=== PATIENT | male | born 1945 | race Caucasian/White ===

== ENCOUNTER 2020-08-05 09:52 | Emergency (ER) | payer OTHER ==
[~2020-08-05 09:52] MED LIST: OMEP20CA12 PO
[2020-08-05 10:16] LABS: APPEARANCE,URINE Clear (CLEAR); BILIRUBIN,URINE Negative (NEGATIVE); COLOR,URINE Yellow (YELLOW); GLUCOSE, URINE (UA) Negative (NEGATIVE); KETONES,URINE Negative (NEGATIVE); LEUKOCYTE ESTERASE ,URINE Negative (NEGATIVE); NITRATE,URINE Negative (NEGATIVE); OCCULT BLOOD,URINE Negative (NEGATIVE); PH,URINE 5.5 (5.0-8.0); PROTEIN,URINE Negative (NEGATIVE)
[2020-08-05] MEDS ORDERED: DIAZEPAM 5 MG/ML 2 ML SYG ONE (10:38)
[2020-08-05 10:51] LABS: BASOPHILS % (AUTO) 0.3 % (0.0-5.0); EOSINOPHILS % (AUTO) 1.6 % (0.0-8.0); HEMATOCRIT 41.9 % (42-54); LYMPHOCYTES % (AUTO) 21.7 % (21.0-51.0); MEAN CORPUSCULAR HEMOGLOBIN 29.2 pg (27.0-33.0); MEAN CORPUSCULAR HGB CONC 33.9 g/dL (32.0-36.0); MONOCYTES % (AUTO) 10.7 % (3.0-13.0); NEUTROPHILS % (AUTO) 65.4 % (40.0-77.0); PLATELET COUNT (AUTO) 202 K/uL (130-400); RED BLOOD CELL COUNT(AUTO) 4.87 MIL/uL (4.50-6.20); RED CELL DISTRIBUTION WIDTH 12.6 % (11.0-15.5); WHITE BLOOD COUNT (AUTO) 6.1 K/uL (4.8-10.8)
[2020-08-05 11:00] LABS: CREATININE 1.1 mg/dL (0.5-1.5); CRP QUANTITATIVE 3.5 mg/L (0.00-9.0); POTASSIUM 4.1 mmol/L (3.5-5.1)
== END 2020-08-05 14:05 | disposition home or self-care (01) ==
LOC: EDH 09:52
DX: S39.011A Strain of muscle, fascia and tendon of abdomen, initial encounter (principal); K21.9 Gastro-esophageal reflux disease without esophagitis; X58.XXXA Exposure to other specified factors, initial encounter; Y93.89 Activity, other specified; Y92.89 Other specified places as the place of occurrence of the external cause; Y99.8 Other external cause status
CPT/HCPCS: 36415; 80048; 81003; 85025; 86140; 96374; 99283; J3360

== ENCOUNTER 2020-12-19 15:27 | Inpatient (IN) | payer OTHER ==
[~2020-12-19] VITALS: Ht 167.6 cm; Wt 85.8 kg
[2020-12-19 15:59] LABS: BASOPHILS % (AUTO) 0.6 % (0.0-5.0); EOSINOPHILS % (AUTO) 1.7 % (0.0-8.0); HEMATOCRIT 41.7 % (42-54); LYMPHOCYTES % (AUTO) 23.8 % (21.0-51.0); MEAN CORPUSCULAR HEMOGLOBIN 29.9 pg (27.0-33.0); MEAN CORPUSCULAR HGB CONC 34.5 g/dL (32.0-36.0); MEAN CORPUSCULAR VOLUME 86.7 fL (79-99); MONOCYTES % (AUTO) 9.7 % (3.0-13.0); NEUTROPHILS % (AUTO) 63.9 % (40.0-77.0); PLATELET COUNT (AUTO) 247 K/uL (130-400); RED BLOOD CELL COUNT(AUTO) 4.81 MIL/uL (4.50-6.20); RED CELL DISTRIBUTION WIDTH 13.1 % (11.0-15.5); WHITE BLOOD COUNT (AUTO) 6.5 K/uL (4.8-10.8)
[2020-12-19 16:08] LABS: CREATININE 1.2 mg/dL (0.5-1.5)
[2020-12-19 16:11] LABS: INR 0.96 (0.85-1.15); PROTHROMBIN TIME 10.5 SEC (9.6-11.6)
[2020-12-19 16:12] LABS: PARTIAL THROMBOPLASTIN TIME 25.1 SEC (26.3-35.5)
[2020-12-19 16:13] LABS: BILIRUBIN,TOTAL 0.4 mg/dL (0.2-1.0); TOTAL PROTEIN, SERUM 7.4 g/dL (6.0-8.3)
[2020-12-19 16:52] LABS: B-TYPE NATRIURETIC PEPTIDE 39 pg/mL (0-100)
[2020-12-19] MEDS ORDERED: PANTOPRAZOLE 40 MG TAB DR PO SCH (17:00)
[2020-12-19] MEDS ORDERED: ASPIRIN 81MG CHEW TAB PO SCH (17:00)
[2020-12-19] MEDS ORDERED: MORPHINE 2 MG SYG IVP PRN (17:00)
[2020-12-19] MEDS ORDERED: NITROGLYCERIN 0.4 MG SL TAB SL PRN (17:00)
[2020-12-19 17:29] LABS: THYROID STIMULATING HORMONE 1.78 uIU/mL (0.36-3.74)
[2020-12-19 17:43] LABS: HEMOGLOBIN A1C 5.6 % (4.0-6.0)
[2020-12-19] MEDS ORDERED: ASPIRIN 325 MG TABLET ONE (18:06)
[2020-12-19 21:34] VITALS: BP 163/75
[2020-12-19 23:36] VITALS: BP 145/65
[2020-12-20] VITALS (13 sets, daily range): BP systolic 120–157; BP diastolic 60–93
[2020-12-20 08:36] LABS: BARBITURATE SCREEN, URINE NEGATIVE (NEGATIVE)
[2020-12-20 08:37] LABS: AMPHET/METH SCREEN,URINE NEGATIVE (NEGATIVE); BENZODIAZEPINES SCREEN,URINE NEGATIVE (NEGATIVE); CANNABINOID SCREEN,URINE NEGATIVE (NEGATIVE); COCAINE SCREEN,URINE NEGATIVE (NEGATIVE); OPIATE SCREEN,URINE NEGATIVE (NEGATIVE); PHENCYCLIDINE SCREEN,URINE NEGATIVE (NEGATIVE)
[2020-12-20] MEDS: ASPIRIN 81MG CHEW TAB PO SCH (09:00)
[2020-12-20] MEDS: PANTOPRAZOLE 40 MG TAB DR PO SCH (09:01)
[2020-12-20] MEDS ORDERED: 0.9% NACL 500ML IV.SOLN 500 ML IV SCH (10:00)
[2020-12-20] MEDS ORDERED: IOHEXOL 350 MG/ML 100ML INFUS..BTL IV ONE (10:15)
[2020-12-20] MEDS ORDERED: IOHEXOL-350 50ML VIAL IV ONE (10:15)
[2020-12-20] MEDS ORDERED: NICARDIPINE 25MG INJ IV ONE (10:15)
[2020-12-20] MEDS ORDERED: MIDAZOLAM HCL 1 MG/ML 2ML VIAL ONE (10:15)
[2020-12-20] MEDS ORDERED: SODIUM BICARB 50MEQ 50ML VIAL 50 ML ONE (10:15)
[2020-12-20] MEDS ORDERED: HEPARIN 10,000 UNIT/10ML (1,000 UNIT/ML) VIAL ONE (10:15)
[2020-12-20] MEDS ORDERED: FENTANYL CITRATE PF 50 MCG/1 ML 2ML VIAL ONE (10:15)
[2020-12-20] MEDS ORDERED: NITROGLYCERIN 2 MG VIAL IV ONE (10:15)
[2020-12-20] MEDS ORDERED: LIDOCAINE HCL 400MG/20ML VIAL ONE (10:16)
[2020-12-20] MEDS ORDERED: 0.9%NACL 1000ML 1,000 ML IV SCH (12:15)
[2020-12-20] MEDS ORDERED: METOPROLOL TARTRATE 25 MG TAB PO SCH (12:15)
[2020-12-20] MEDS ORDERED: ATORVASTATIN 20 MG TABLET PO SCH (21:00)
[2020-12-20] MEDS: METOPROLOL TARTRATE 25 MG TAB PO SCH (21:20)
[2020-12-21] VITALS (18 sets, daily range): BP systolic 68–200; BP diastolic 38–101
[2020-12-21 04:02] LABS: BASOPHILS % (AUTO) 0.5 % (0.0-5.0); EOSINOPHILS % (AUTO) 1.8 % (0.0-8.0); HEMATOCRIT 39.7 % (42-54); LYMPHOCYTES % (AUTO) 23.1 % (21.0-51.0); MEAN CORPUSCULAR HEMOGLOBIN 29.6 pg (27.0-33.0); MEAN CORPUSCULAR HGB CONC 33.8 g/dL (32.0-36.0); MEAN CORPUSCULAR VOLUME 87.6 fL (79-99); MONOCYTES % (AUTO) 9.1 % (3.0-13.0); NEUTROPHILS % (AUTO) 65.3 % (40.0-77.0); PLATELET COUNT (AUTO) 223 K/uL (130-400); RED BLOOD CELL COUNT(AUTO) 4.53 MIL/uL (4.50-6.20); RED CELL DISTRIBUTION WIDTH 13.1 % (11.0-15.5); WHITE BLOOD COUNT (AUTO) 6.6 K/uL (4.8-10.8)
[2020-12-21 04:12] LABS: INR 1.02 (0.85-1.15); PROTHROMBIN TIME 11.1 SEC (9.6-11.6)
[2020-12-21 04:13] LABS: PARTIAL THROMBOPLASTIN TIME 25.4 SEC (26.3-35.5)
[2020-12-21 04:20] LABS: ALBUMIN 3.6 g/dL (3.5-5.0); BILIRUBIN,TOTAL 0.6 mg/dL (0.2-1.0); CREATININE 1.2 mg/dL (0.5-1.5); POTASSIUM 3.9 mmol/L (3.5-5.1); TOTAL PROTEIN, SERUM 6.8 g/dL (6.0-8.3)
[2020-12-21] MEDS: METOPROLOL TARTRATE 25 MG TAB PO SCH ×2 (06:19→08:44)
[2020-12-21 07:57] LABS: APPEARANCE,URINE Clear (CLEAR); BILIRUBIN,URINE Negative (NEGATIVE); COLOR,URINE Yellow (YELLOW); GLUCOSE, URINE (UA) Negative (NEGATIVE); KETONES,URINE Negative (NEGATIVE); LEUKOCYTE ESTERASE ,URINE Negative (NEGATIVE); NITRATE,URINE Negative (NEGATIVE); OCCULT BLOOD,URINE Negative (NEGATIVE); PH,URINE 5.5 (5.0-8.0); PROTEIN,URINE Negative (NEGATIVE)
[2020-12-21 08:20] LABS: BACTERIA,URINE Rare /HPF (None Seen); RBC,URINE None Seen /HPF (0-1); SQUAMOUS EPITHELIAL CELL,UR Rare /HPF (0-2); WBC,URINE None Seen /HPF (0-1)
[2020-12-21] MEDS: ASPIRIN 81MG CHEW TAB PO SCH (08:44)
[2020-12-21] MEDS: PANTOPRAZOLE 40 MG TAB DR PO SCH (08:44)
[2020-12-21] MEDS ORDERED: PAPAVERINE HCL 30 MG/ML 2ML VIAL ONE (11:43)
[2020-12-21] MEDS ORDERED: CEFAZOLIN SODIUM 1 GM VIAL ONE (11:43)
[2020-12-21] MEDS ORDERED: NOREPINEPHRINE BITARTRATE 8 MG in DEXTROSE 5%-WATER 250 ML IV PRN (11:45)
[2020-12-21] MEDS ORDERED: NITROGLYCERIN 50MG/D5W 250ML 250 BOT IV PRN (11:45)
[2020-12-21] MEDS ORDERED: EPINEPHRINE PF 1MG AMP 10 MG in 0.9% NACL 250ML 240 ML IV PRN (11:45)
[2020-12-21] MEDS ORDERED: AMINOCAPROIC ACID 5,000MG VIAL 15,000 MG in 0.9% NACL 500ML IV.SOLN 420 ML IV PRN (11:45)
[2020-12-21] MEDS ORDERED: SODIUM BICARB 50MEQ 50ML VIAL 100 ML ONE (12:19)
[2020-12-21] MEDS ORDERED: NITROGLYCERIN 50MG/D5W 250ML 1 BOT ONE (12:19)
[2020-12-21] MEDS ORDERED: ROCURONIUM 10MG/1ML SYR 10 MG/ML ML ONE ×2 (12:35→17:51)
[2020-12-21] MEDS ORDERED: CEFAZOLIN SODIUM 1 GM VIAL IVP PRN (13:00)
[2020-12-21] MEDS ORDERED: SODIUM BICARB 50MEQ 50ML VIAL 150 ML ONE (17:49)
[2020-12-21] MEDS ORDERED: LIDOCAINE PF 100MG/5ML (2%) SYRINGE 5ML ONE (17:49)
[2020-12-21] MEDS ORDERED: NOREPINEPHRINE BITARTRATE 1 MG/1 ML ML IV ONE (17:49)
[2020-12-21] MEDS ORDERED: EPINEPHRINE PF 1MG AMP ONE (17:49)
[2020-12-21] MEDS ORDERED: HEPARIN 10,000 UNIT/10ML (1,000 UNIT/ML) VIAL ONE ×2 (17:49→18:58)
[2020-12-21] MEDS ORDERED: ESMOLOL HCL 10 MG/ML 10 ML VIAL ONE (17:49)
[2020-12-21] MEDS ORDERED: AMINOCAPROIC ACID 5,000MG VIAL ONE (17:49)
[2020-12-21] MEDS ORDERED: PROPOFOL 10 MG/ML 20ML VIAL IV ONE (17:50)
[2020-12-21] MEDS ORDERED: MIDAZOLAM HCL 1 MG/ML 2ML VIAL ONE (17:50)
[2020-12-21] MEDS ORDERED: FENTANYL CITRATE PF 50 MCG/1 ML 20ML VIAL IJ ONE (17:50)
[2020-12-21] MEDS ORDERED: KETAMINE 50MG/ML SYRINGE 50 MG/ML DISP.SYRIN IV ONE (17:52)
[2020-12-21 19:05] LABS: ABG BASE EXCESS -2.8 mmol/L (-2.0-3.0); ABG HCO3 22.5 mmol/L (21.0-28.0); ABG OXYGEN SATURATION 99.3 % (95.0-99.0); ABG PCO2 41 mmHg (35-48)
[2020-12-21] MEDS ORDERED: PROTAMINE SULFATE 10 MG/ML 5 ML VIAL ONE (19:32)
[2020-12-21] MEDS ORDERED: AMIODARONE 150MG VIAL ONE (19:53)
[2020-12-21] MEDS ORDERED: ASPIRIN 325 MG TABLET PO SCH (20:00)
[2020-12-21 20:19] LABS: ABG BASE EXCESS -4.2 mmol/L (-2.0-3.0); ABG HCO3 21.6 mmol/L (21.0-28.0); ABG OXYGEN SATURATION 99.1 % (95.0-99.0); ABG PCO2 42 mmHg (35-48)
[2020-12-21] MEDS ORDERED: AMINOCAPROIC ACID 5,000MG VIAL 15,000 MG in 0.9% NACL 250ML 250 ML IV SCH (20:30)
[2020-12-21] MEDS ORDERED: PROPOFOL 1000 MG/100 ML 100 ML IV PRN (20:30)
[2020-12-21] MEDS ORDERED: POTASSIUM PHOS 15 mMOL+NS250ML 250 ML IV PRN (20:30)
[2020-12-21] MEDS ORDERED: 0.9%NACL 1000ML 1,000 ML IV SCH (20:30)
[2020-12-21] MEDS ORDERED: DEXTROSE 50%-WATER 50 ML DISP.SYRIN IV PRN (20:30)
[2020-12-21] MEDS ORDERED: EPINEPHRINE PF 1MG AMP 10 MG in DEXTROSE 5%-WATER 250 ML IV PRN (20:30)
[2020-12-21] MEDS ORDERED: TRAMADOL HCL 50 MG TABLET PO PRN (20:30)
[2020-12-21] MEDS ORDERED: MORPHINE 4 MG SYG IV PRN (20:30)
[2020-12-21] MEDS ORDERED: ALBUMIN (HUMAN) 5% 250 ML IV PRN (20:30)
[2020-12-21] MEDS ORDERED: MORPHINE 2 MG SYG IV PRN (20:30)
[2020-12-21] MEDS ORDERED: ACETAMINOPHEN 325 MG TAB PO PRN (20:30)
[2020-12-21] MEDS ORDERED: 0.9%NACL 10ML VIAL IVP PRN (20:30)
[2020-12-21] MEDS ORDERED: NOREPINEPHRIN 4MG/NS 250ML 250 ML IV PRN (20:30)
[2020-12-21] MEDS ORDERED: ACETAMINOPHEN 650 MG SUPPOSITORY RC PRN (20:30)
[2020-12-21] MEDS ORDERED: GLUCAGON 1MG KIT 1 MG ML IM PRN (20:30)
[2020-12-21] MEDS ORDERED: 0.9% NACL 500ML IV.SOLN 500 ML IV SCH (20:30)
[2020-12-21] MEDS ORDERED: ASPIRIN 81MG CHEW TAB PO SCH (20:30)
[2020-12-21] MEDS ORDERED: NITROGLYCERIN 50MG/D5W 250ML 250 BOT IV SCH (20:30)
[2020-12-21] MEDS: ATORVASTATIN 40 MG TABLET PO SCH (21:00)
[2020-12-21] MEDS: FAMOTIDINE 20MG VIAL IV SCH (21:00)
[2020-12-21] MEDS ORDERED: NOREPINEPHRIN 8MG/250ML NS PMX 250 ML IV PRN (21:00)
[2020-12-21 21:03] LABS: HEMATOCRIT 36.5 % (42-54); MEAN CORPUSCULAR HEMOGLOBIN 29.9 pg (27.0-33.0); MEAN CORPUSCULAR HGB CONC 34.5 g/dL (32.0-36.0); MEAN CORPUSCULAR VOLUME 86.5 fL (79-99); RED BLOOD CELL COUNT(AUTO) 4.22 MIL/uL (4.50-6.20); RED CELL DISTRIBUTION WIDTH 13.1 % (11.0-15.5); WHITE BLOOD COUNT (AUTO) 29.7 K/uL (4.8-10.8)
[2020-12-21 21:19] LABS: CREATININE 1.1 mg/dL (0.5-1.5); MAGNESIUM 1.5 mg/dL (1.80-2.40); PHOSPHORUS 4.7 mg/dL (2.5-4.9); POTASSIUM 3.2 mmol/L (3.5-5.1)
[2020-12-21 21:19] LABS: ABG HCO3 21.6 mmol/L (21.0-28.0); ABG OXYGEN SATURATION 97.1 % (95.0-99.0); ABG PCO2 41 mmHg (35-48)
[2020-12-21 21:32] LABS: INR 1.16 (0.85-1.15); PROTHROMBIN TIME 12.5 SEC (9.6-11.6)
[2020-12-21 21:33] LABS: PARTIAL THROMBOPLASTIN TIME 20.1 SEC (26.3-35.5)
[2020-12-21 22:07] LABS: ABG BASE EXCESS 2.8 mmol/L (-2.0-3.0); ABG HCO3 27.4 mmol/L (21.0-28.0); ABG OXYGEN SATURATION 95.1 % (95.0-99.0); ABG PCO2 42 mmHg (35-48)
[2020-12-21] MEDS ORDERED: CALCIUM GLUC 1GM/10ML VIAL IV ONE (22:15)
[2020-12-21] MEDS: CALCIUM GLUC 1GM 1 GM in 0.9%NACL 50ML 50 ML IV PRN (22:16)
[2020-12-21] MEDS: POTASSIUM CHLORIDE 20MEQ/100ML 100 ML IV PRN ×2 (22:16→23:34)
[2020-12-21] MEDS: INSULIN REGULAR, HUMAN 3ML 100 UNIT in 0.9%NACL 100ML 99 ML IV SCH ×2 (22:35)
[2020-12-21] MEDS: SODIUM BICARB 50MEQ 50ML VIAL IV PRN ×2 (22:38→22:39)
[2020-12-21 23:20] LABS: ABG BASE EXCESS -0.2 mmol/L (-2.0-3.0); ABG HCO3 24.7 mmol/L (21.0-28.0); ABG OXYGEN SATURATION 97.2 % (95.0-99.0); ABG PCO2 41 mmHg (35-48)
[2020-12-21] MEDS: MAGNESIUM 2GM PREMIX 50ML 50 ML IV PRN (23:34)
[2020-12-22] VITALS (37 sets, daily range): BP systolic 91–157; BP diastolic 45–84
[2020-12-22 00:13] LABS: ABG BASE EXCESS -0.2 mmol/L (-2.0-3.0); ABG HCO3 24.3 mmol/L (21.0-28.0); ABG OXYGEN SATURATION 96.9 % (95.0-99.0); ABG PCO2 39 mmHg (35-48)
[2020-12-22] MEDS ORDERED: CALCIUM GLUC 1GM/10ML VIAL IV ONE (00:17)
[2020-12-22] MEDS: CALCIUM GLUC 1GM 1 GM in 0.9%NACL 50ML 50 ML IV PRN (00:24)
[2020-12-22] MEDS: CEFAZOLIN SODIUM 1 GM VIAL IV SCH ×3 (00:37→16:38)
[2020-12-22] MEDS: MAGNESIUM 2GM PREMIX 50ML 50 ML IV PRN (01:15)
[2020-12-22 01:19] LABS: ABG BASE EXCESS -1.6 mmol/L (-2.0-3.0); ABG HCO3 22.5 mmol/L (21.0-28.0); ABG OXYGEN SATURATION 94.8 % (95.0-99.0); ABG PCO2 36 mmHg (35-48)
[2020-12-22] MEDS: POTASSIUM CHLORIDE 20MEQ/100ML 100 ML IV PRN ×2 (01:31→03:14)
[2020-12-22 03:08] LABS: ABG BASE EXCESS -1.5 mmol/L (-2.0-3.0); ABG HCO3 23.4 mmol/L (21.0-28.0); ABG PCO2 40 mmHg (35-48)
[2020-12-22] MEDS: SODIUM BICARB 50MEQ 50ML VIAL IV PRN (03:13)
[2020-12-22 04:18] LABS: BASOPHILS % (AUTO) 0.1 % (0.0-5.0); HEMATOCRIT 36.9 % (42-54); LYMPHOCYTES % (AUTO) 2.5 % (21.0-51.0); MEAN CORPUSCULAR HEMOGLOBIN 29.6 pg (27.0-33.0); MEAN CORPUSCULAR HGB CONC 34.1 g/dL (32.0-36.0); MEAN CORPUSCULAR VOLUME 86.6 fL (79-99); MONOCYTES % (AUTO) 9.5 % (3.0-13.0); NEUTROPHILS % (AUTO) 87.4 % (40.0-77.0); PLATELET COUNT (AUTO) 368 K/uL (130-400); RED BLOOD CELL COUNT(AUTO) 4.26 MIL/uL (4.50-6.20); RED CELL DISTRIBUTION WIDTH 13.2 % (11.0-15.5)
[2020-12-22 04:31] LABS: INR 1.05 (0.85-1.15); PROTHROMBIN TIME 11.4 SEC (9.6-11.6)
[2020-12-22 04:32] LABS: CREATININE 1.6 mg/dL (0.5-1.5); PHOSPHORUS 2.9 mg/dL (2.5-4.9); POTASSIUM 4.6 mmol/L (3.5-5.1)
[2020-12-22 04:33] LABS: PARTIAL THROMBOPLASTIN TIME 20.7 SEC (26.3-35.5)
[2020-12-22] MEDS: FUROSEMIDE 20MG VIAL IV SCH ×2 (08:38→19:57)
[2020-12-22] MEDS: FAMOTIDINE 20MG VIAL IV SCH ×2 (08:38→19:57)
[2020-12-22] MEDS: ASPIRIN 325MG EC TAB PO SCH (08:38)
[2020-12-22] MEDS: TRAMADOL HCL 50 MG TABLET PO PRN ×2 (08:39→20:38)
[2020-12-22] MEDS: ONDANSETRON 4MG INJ IV PRN ×2 (09:49→19:57)
[2020-12-22] MEDS ORDERED: ONDANSETRON 4MG INJ IVP PRN (12:45)
[2020-12-22] MEDS: ATORVASTATIN 40 MG TABLET PO SCH (19:57)
[2020-12-22] MEDS: INSULIN REGULAR, HUMAN 3ML 100 UNIT in 0.9%NACL 100ML 99 ML IV SCH ×2 (23:25)
[2020-12-23] VITALS (28 sets, daily range): BP systolic 98–162; BP diastolic 47–78
[2020-12-23 05:09] LABS: HEMATOCRIT 34.9 % (42-54); MEAN CORPUSCULAR HEMOGLOBIN 29.9 pg (27.0-33.0); MEAN CORPUSCULAR HGB CONC 34.1 g/dL (32.0-36.0); MEAN CORPUSCULAR VOLUME 87.7 fL (79-99); RED BLOOD CELL COUNT(AUTO) 3.98 MIL/uL (4.50-6.20); RED CELL DISTRIBUTION WIDTH 13.6 % (11.0-15.5); WHITE BLOOD COUNT (AUTO) 20.3 K/uL (4.8-10.8)
[2020-12-23 05:17] LABS: CREATININE 1.4 mg/dL (0.5-1.5); POTASSIUM 3.8 mmol/L (3.5-5.1)
[2020-12-23] MEDS: TRAMADOL HCL 50 MG TABLET PO PRN (07:43)
[2020-12-23] MEDS: POTASSIUM CHLORIDE 20MEQ/100ML 100 ML IV PRN (07:48)
[2020-12-23] MEDS ORDERED: METOPROLOL TARTRATE 25 MG TAB PO SCH ×2 (09:00→21:00)
[2020-12-23] MEDS: FAMOTIDINE 20MG VIAL IV SCH ×2 (09:00→20:11)
[2020-12-23] MEDS: ASPIRIN 325MG EC TAB PO SCH (10:36)
[2020-12-23] MEDS: FUROSEMIDE 20 MG TABLET PO SCH ×2 (10:37→17:07)
[2020-12-23] MEDS: METOPROLOL TARTRATE 25 MG TAB PO SCH ×2 (11:40→20:10)
[2020-12-23] MEDS: ATORVASTATIN 40 MG TABLET PO SCH (20:10)
[2020-12-23] MEDS ORDERED: AMIODARONE 150MG VIAL ONE (22:37)
[2020-12-23] MEDS ORDERED: AMIODARONE 900MG VIAL IV ONE (22:37)
[2020-12-23] MEDS ORDERED: AMIODARONE 900MG VIAL 360 MG in DEXTROSE 5%-WATER 200 ML IV SCH (22:45)
[2020-12-23] MEDS ORDERED: AMIODARONE 900MG VIAL 450 MG in DEXTROSE 5%-WATER 250 ML IV SCH (22:45)
[2020-12-23] MEDS ORDERED: AMIODARONE 150MG VIAL 150 MG in DEXTROSE 5%-WATER 100 ML IV SCH (22:45)
[2020-12-24 03:00] VITALS: BP 101/64
[2020-12-24 04:00] LABS: HEMATOCRIT 33.2 % (42-54); MEAN CORPUSCULAR HEMOGLOBIN 29.6 pg (27.0-33.0); MEAN CORPUSCULAR HGB CONC 33.1 g/dL (32.0-36.0); MEAN CORPUSCULAR VOLUME 89.5 fL (79-99); RED BLOOD CELL COUNT(AUTO) 3.71 MIL/uL (4.50-6.20); RED CELL DISTRIBUTION WIDTH 13.5 % (11.0-15.5); WHITE BLOOD COUNT (AUTO) 16.6 K/uL (4.8-10.8)
[2020-12-24 04:08] LABS: CREATININE 1.5 mg/dL (0.5-1.5)
[2020-12-24 05:00] VITALS: BP 99/63
[2020-12-24 07:48] VITALS: BP 96/61
[2020-12-24] MEDS ORDERED: ENOXAPARIN SODIUM 30 MG/0.3 ML SQ SCH (09:00)
[2020-12-24 10:56] VITALS: BP 102/55
[2020-12-24] MEDS: FUROSEMIDE 20 MG TABLET PO SCH ×2 (10:59→17:10)
[2020-12-24] MEDS: ASPIRIN 325MG EC TAB PO SCH (10:59)
[2020-12-24] MEDS: FAMOTIDINE 20MG VIAL IV SCH ×2 (11:00→21:39)
[2020-12-24] MEDS: METOPROLOL TARTRATE 25 MG TAB PO SCH ×2 (11:01→21:37)
[2020-12-24 16:00] VITALS: BP 91/58
[2020-12-24 19:00] VITALS: BP 108/72
[2020-12-24] MEDS: ATORVASTATIN 40 MG TABLET PO SCH (21:36)
[2020-12-24] MEDS: AMIODARONE 200 MG TABLET PO SCH (21:36)
[2020-12-24] MEDS: IPRATROPIUM/ALBUTEROL SULFATE 3 ML SOLUTION IH SCH (23:04)
[2020-12-25] VITALS: BP 127/77
[2020-12-25] MEDS: TRAMADOL HCL 50 MG TABLET PO PRN (02:52)
[2020-12-25 03:48] LABS: BASOPHILS % (AUTO) 0.3 % (0.0-5.0); EOSINOPHILS % (AUTO) 0.5 % (0.0-8.0); HEMATOCRIT 31.4 % (42-54); LYMPHOCYTES % (AUTO) 10.6 % (21.0-51.0); MEAN CORPUSCULAR HEMOGLOBIN 29.3 pg (27.0-33.0); MEAN CORPUSCULAR HGB CONC 32.8 g/dL (32.0-36.0); MEAN CORPUSCULAR VOLUME 89.2 fL (79-99); MONOCYTES % (AUTO) 12.4 % (3.0-13.0); NEUTROPHILS % (AUTO) 75.6 % (40.0-77.0); PLATELET COUNT (AUTO) 209 K/uL (130-400); RED BLOOD CELL COUNT(AUTO) 3.52 MIL/uL (4.50-6.20); RED CELL DISTRIBUTION WIDTH 13.2 % (11.0-15.5); WHITE BLOOD COUNT (AUTO) 11.6 K/uL (4.8-10.8)
[2020-12-25 04:00] VITALS: BP 124/82
[2020-12-25 04:00] LABS: CREATININE 1.4 mg/dL (0.5-1.5); POTASSIUM 3.7 mmol/L (3.5-5.1)
[2020-12-25] MEDS: IPRATROPIUM/ALBUTEROL SULFATE 3 ML SOLUTION IH SCH ×2 (06:25→10:54)
[2020-12-25 07:00] VITALS: BP 124/70
[2020-12-25] MEDS ORDERED: APIXABAN 5 MG TABLET PO SCH (09:00)
[2020-12-25] MEDS: FUROSEMIDE 20 MG TABLET PO SCH ×2 (09:14→16:34)
[2020-12-25] MEDS: ASPIRIN 325MG EC TAB PO SCH (09:14)
[2020-12-25] MEDS: AMIODARONE 200 MG TABLET PO SCH (09:14)
[2020-12-25] MEDS: METOPROLOL TARTRATE 25 MG TAB PO SCH (09:14)
[2020-12-25] MEDS: FAMOTIDINE 20MG VIAL IV SCH (09:15)
[2020-12-25 11:00] VITALS: BP 120/69
[2020-12-25] MEDS ORDERED: POTASSIUM CHLORIDE 10% ELIXIR 20 MEQ/15 ML UDCUP PO PRN (12:45)
[2020-12-25] MEDS ORDERED: PHARMACY COMMUNICATION MISC SCH (12:45)
[2020-12-25] MEDS ORDERED: POTASSIUM CHLORIDE 20MEQ/100ML 100 ML IV PRN (12:45)
[2020-12-25] MEDS ORDERED: LIDOCAINE HCL-MPF 1% 2ML VIAL IV PRN (12:45)
[2020-12-25] MEDS ORDERED: KCL 20 MEQ ERTAB PO PRN (12:45)
[2020-12-25] MEDS ORDERED: APIX5TAB PO (15:33)
[2020-12-25] MEDS ORDERED: METO25 PO (15:33)
[2020-12-25] MEDS ORDERED: FURO20TA6 PO (15:33)
[2020-12-25] MEDS ORDERED: AMIO200T44 PO (15:33)
[2020-12-25] MEDS ORDERED: ATOR40TA69 PO (15:33)
[2020-12-25 16:00] VITALS: BP 108/60
[2020-12-25] MEDS ORDERED: AEC81 PO (17:26)
== END 2020-12-25 19:44 | disposition home or self-care (01) | DRG 233 ==
LOC: EDH 15:27 → EDHIP 16:59 → OBSVTOIN 16:59 → 3DH 21:40 → 4DH 21:45 → 2CV 12-21 19:57 → 2CH 12-22 06:19 → 4DH 12-24 05:11
PROVIDERS: ADMIT Internal Medicine; ATTEND Internal Medicine
PROC: 4A023N7 Measurement of Cardiac Sampling and Pressure, Left Heart, Percutaneous Approach (ICD-10-PCS; principal; 2020-12-20)
PROC: 02100Z9 Bypass Coronary Artery, One Artery from Left Internal Mammary, Open Approach (ICD-10-PCS; 2020-12-20)
PROC: 021109W Bypass Coronary Artery, Two Arteries from Aorta with Autologous Venous Tissue, Open Approach (ICD-10-PCS; 2020-12-20)
PROC: 06BQ4ZZ Excision of Left Saphenous Vein, Percutaneous Endoscopic Approach (ICD-10-PCS; 2020-12-20)
PROC: B2111ZZ Fluoroscopy of Multiple Coronary Arteries using Low Osmolar Contrast (ICD-10-PCS; 2020-12-20)
PROC: B2151ZZ Fluoroscopy of Left Heart using Low Osmolar Contrast (ICD-10-PCS; 2020-12-20)
DX: I25.110 Atherosclerotic heart disease of native coronary artery with unstable angina pectoris (principal); J95.1 Acute pulmonary insufficiency following thoracic surgery; I24.9 Acute ischemic heart disease, unspecified; I97.190 Other postprocedural cardiac functional disturbances following cardiac surgery; K21.9 Gastro-esophageal reflux disease without esophagitis; E78.5 Hyperlipidemia, unspecified; Z96.619 Presence of unspecified artificial shoulder joint; E78.00 Pure hypercholesterolemia, unspecified; Z79.899 Other long term (current) drug therapy; Z79.82 Long term (current) use of aspirin; Z91.81 History of falling; Z83.3 Family history of diabetes mellitus; Y83.8 Other surgical procedures as the cause of abnormal reaction of the patient, or of later complication, without mention of misadventure at the time of the procedure; Y71.8 Miscellaneous cardiovascular devices associated with adverse incidents, not elsewhere classified; Y92.89 Other specified places as the place of occurrence of the external cause; I48.0 Paroxysmal atrial fibrillation
CPT/HCPCS: 36415; 71045; 80048; 80053; 80061; 80305; 81001; 82435; 82550; 82803; 82947; 82948; 83036; 83605; 83735; 83880; 84100; 84132; 84295; 84443; 84484; 85018; 85025; 85027; 85347; 85610; 85730; 86850; 86900; 86901; 86923; 93005; 93306; 93356; 93458; 93880; 94002; 94003; 94010; 94640; 94664; 97039; 99156; 99157; A7048; C1769; G0378; J0171; J0282; J0610; J0690; J1644; J1650; J1815; J1940; J2001; J2250; J2405; J2440; J2704; J2720; J3010; J3475; J3480; J3490; J7030; J7040; J7050; Q9967